=== PATIENT | female | born 1975 | race American Indian/Alaskan Native ===

== ENCOUNTER 2016-08-19 15:26 | Emergency (ER) | payer OTHER ==
[2016-08-19 16:18] VITALS: BP 141/96
== END 2016-08-19 17:30 | disposition left against medical advice (07) ==
LOC: ED 15:26
DX: R51 Headache (principal); E11.9 Type 2 diabetes mellitus without complications; Z88.0 Allergy status to penicillin; Z88.8 Allergy status to other drugs, medicaments and biological substances; Z53.21 Procedure and treatment not carried out due to patient leaving prior to being seen by health care provider

== ENCOUNTER 2020-10-05 13:37 | Emergency (ER) | payer OTHER ==
[2020-10-05 14:02] VITALS: BP 161/94
--- NOTE | 2020-10-05 17:13 | Emergency Department Report ---
ED General Adult HPI - General Chief complaint: Urogenital-Female Stated complaint: VAGINA SWOLLEN/INFLAMMED/PAINFUL Time Seen by Provider: 10/05/20 16:05 Source: patient Mode of arrival: Ambulatory Limitations: No Limitations - History of Present Illness Initial comments: 45-year-old female patient with history of diabetes, PCOS, and hypertension presents to the emergency department with complaints of painful swelling in her vagina starting 4 days ago. No history of similar symptoms. No STD exposure. No recent trauma. Patient has applied witch sundeep, Vaseline, and Epsom salt to the affected area with limited relief. She is scheduled to see her supervisor tank storage in 3 days. Blood glucose levels have remained stable. Denies fever, chills, abdominal pain, pelvic pain, vaginal bleeding, vaginal discharge, urinary symptoms. Denies all other complaints at this time. Severity scale (0 -10): 10 - Related Data Previous Rx's Medication Instructions Recorded Last Taken Type HYDROcodone/APAP 5-325 [[place] 1 each PO Q6HR PRN #10 tablet 09/12/15 Unknown Rx 5/325] Naproxen 250 mg PO BID #20 tablet 10/05/20 Unknown Rx Sulfamethoxazole/Trimethoprim 1 each PO BID 14 Days tablet 10/05/20 Unknown Rx [Bactrim DS TAB] Allergies Allergy/AdvReac Type Severity Reaction Status Date / Time diphenhydramine HCl Allergy Hives Verified 09/11/15 19:01 [From Benadryl] Penicillins Allergy Hives Verified 09/11/15 19:01 ED Review of Systems ROS: Stated complaint: VAGINA SWOLLEN/INFLAMMED/PAINFUL Other details as noted in HPI Other: GENERAL: Negative for fever, chills, weight change, anorexia, fatigue. ENT: Negative for ear pain, difficulty hearing, sore throat, nasal congestion, epistaxis. CARDIOVASCULAR: Negative for chest pain, palpitations, lower extremity swelling. PULMONARY: Negative for cough, dyspnea, wheezing, orthopnea, cyanosis. GASTROINTESTINAL: Negative for abdominal pain, nausea, vomiting, diarrhea, constipation. GENITOURINARY: Positive for vaginal pain/swelling. MUSCULOSKELETAL: Negative for joint pain, joint swelling, myalgias, back pain, neck pain. NEUROLOGICAL: Negative for headache, seizure, syncope, paresthesias, weakness. INTEGUMENTARY: Negative for erythema, rash, diaphoresis, laceration, ecchymosis. HEMATOLOGICAL: Negative for hemoptysis, hematemesis, hematochezia, hematuria. PSYCHIATRIC: Negative for hallucinations, suicidal ideation, homicidal ideation, anxiety, depression. ED Past Medical Hx - Past Medical History Previous Medical History?: Yes Hx Diabetes: Yes Additional medical history: Hx of headaches - Social History Smoking Status: Never Smoker Substance Use Type: None - Medications Home Medications: Home Medications Medication Instructions Recorded Confirmed Last Taken Type HYDROcodone/APAP 5-325 [[place] 1 each PO Q6HR PRN #10 tablet 09/12/15 Unknown Rx 5/325] Naproxen 250 mg PO BID #20 tablet 10/05/20 Unknown Rx Sulfamethoxazole/Trimethoprim 1 each PO BID 14 Days tablet 10/05/20 Unknown Rx [Bactrim DS TAB] ED Physical Exam - General Limitations: No Limitations - Other Other exam information: General: Awake, appropriately interactive, no acute distress. Neck: Supple. Full range of motion intact. Cardiovascular: Normal peripheral perfusion. Pulmonary: No respiratory distress. Patient is speaking normally without use of accessory muscles. Genitourinary: Female hand rounder (ALMA Engel) present. There is a tender, erythematous, raised area measuring approximately 1 cm along the right vulvar area with minimal fluctuance and no drainage. No obvious vaginal discharge. No satellite lesions. No crepitus. No necrosis. Pain is appropriately proportional to exam findings. Skin: No apparent rashes or lesions. Neurological: No facial asymmetry. Speech is clear. Follows commands. Patient is alert and oriented. Musculoskeletal: Moves all four extremities spontaneously with normal range of motion. Psych: Cooperative. Appropriate mood and affect. ED Course Vital Signs 10/05/20 14:00 Temperature 98.2 F Pulse Rate 89 Respiratory 18 Rate Blood Pressure 161/94 [Right] O2 Sat by Pulse 98 Oximetry ED Medical Decision Making - Medical Decision Making Differential diagnosis including but not limited to: infected Bartholin cyst, infected [place] gland, vulvovaginal candidiasis, sexually transmitted infection, Amanda's gangrene, necrotizing soft tissue infection Patient presents emergency department with complaints of painful vaginal swelling. She is afebrile and hemodynamically stable. Physical exam demonstrates early vulvar abscess. No clinical evidence to suggest Amanda's gangrene or systemic bacterial infection warranting further diagnostic work-up on an emergent basis at this time. Since the abscess is less than 2 cm with minimal fluctuance, she is an appropriate candidate for outpatient antibiotics + warm compresses. Patient is scheduled to see her supervisor tank storage in 72 hours. It was explained to the patient that incision & drainage is not clinically necessary at this time but may be reconsidered at her follow-up appointment if her symptoms have failed to improve with conservative management. Patient expressed understanding and is agreeable to plan of care. Strict return precautions provided. Repeat exam is unremarkable and benign. History, exam, diagnostic testing, and current condition do not suggest worrisome pathology to warrant further testing, continued ED treatment, admission, or surgical evaluation at this point. Given the low probability of a significant medical illness, it would be more likely to result in harm than benefit to perform further testing at this stage. Discussed findings, presumptive diagnosis, need for follow-up and specific signs/symptoms that should prompt immediate return to the emergency department. Instructions were explained in detail to the patient in addition to giving written discharge information. Patient expressed understanding and was given the opportunity to ask questions, all of which were satisfactorily answered prior to discharge home. Critical care attestation.: If time is entered above; I have spent that time in minutes in the direct care of this critically ill patient, excluding procedure time. ED Disposition Clinical Impression: Vulvar abscess Disposition: DC- TO HOME OR SELFCARE Is pt being admited?: No Does the pt Need Aspirin: No Condition: Stable Instructions: Skin Abscess, [id number] Additional Instructions: Take Bactrim with food as directed. Take Naprosyn twice daily with food as directed. Apply warm compresses to affected area at least 3 times per day. The area may begin to drain on its own. Do not forcefully attempt to express drainage from the area. Follow-up with your supervisor tank storage on Thursday, October 08 as previously scheduled. Return to the emergency department immediately for new or worsening symptoms. Specifically, return to the emergency department immediately for fever, increased pain/swelling, inability to use the bathroom, or any other concerns. Prescriptions: Sulfamethoxazole/Trimethoprim [Bactrim DS TAB] 1 each PO BID 14 Days tablet Naproxen 250 mg PO BID #20 tablet Referrals: [facility] [Provider Group] - 3-5 Days Forms: Work/School Release Form(ED) Time of Disposition: 17:13
== END 2020-10-05 17:44 | disposition home or self-care (01) ==
LOC: ED 13:37
DX: N76.4 Abscess of vulva (principal); I10 Essential (primary) hypertension; E11.9 Type 2 diabetes mellitus without complications; Z88.0 Allergy status to penicillin; Z88.8 Allergy status to other drugs, medicaments and biological substances; Z79.899 Other long term (current) drug therapy
CPT/HCPCS: 99281